=== PATIENT | female | born 1970 | race Caucasian/White ===

== ENCOUNTER 2018-11-14 05:57 | Day surgery (SDC) | payer BC ==
[2018-11-14] MEDS ORDERED: METOCLOPRAMIDE 10 MG INJ (07:53)
[2018-11-14] MEDS ORDERED: ONDANSETRON 4 MG INJ (07:53)
[2018-11-14] MEDS ORDERED: PROPOFOL 60 ML (08:22)
== END 2018-11-14 12:48 | disposition home or self-care (01) ==
LOC: GIL 05:57 → SDS 05:57 → GIL 05:57
DX: Z12.11 Encounter for screening for malignant neoplasm of colon (principal); D12.4 Benign neoplasm of descending colon; J45.909 Unspecified asthma, uncomplicated; G47.30 Sleep apnea, unspecified
CPT/HCPCS: 43239; 88305; 88312